=== PATIENT | male | born 1990 | race African-American/Black ===

== ENCOUNTER 2018-03-01 22:37 | Emergency (ER) | payer MEDICAID ==
[~2018-03-01] VITALS: Ht 170.2 cm; Wt 104.3 kg
[~2018-03-01 22:37] MED LIST: METFORMIN HCL1000 M2 ORAL
[2018-03-01 22:45] VITALS: BP 134/75
[2018-03-01] MEDS ORDERED: Insulin Human Regular 100units/ml 3ml IV ONE (23:00)
[2018-03-01 23:08] LABS: APPEARANCE,URINE CLEAR; BASOPHILS % (AUTO) 3.5 % (0.0-2.0); BILIRUBIN, URINE NEGATIVE (NEGATIVE); COLOR,URINE PALE YELLOW; GLUCOSE, URINE (UA) 4+ (NEGATIVE); HEMATOCRIT 47.5 % (42.0-52.0); HEMOGLOBIN 15.9 G/DL (14.2-18.0); KETONES,URINE 4+ (NEGATIVE); LEUKOCYTE ESTERASE ,URINE NEGATIVE (NEGATIVE); LYMPHOCYTES % (AUTO) 23.6 % (20.0-45.0); MEAN CORPUSCULAR VOLUME 85 FL (80-99); NEUTROPHILS % (AUTO) 65.9 % (45.0-75.0); NITRITE,URINE NEGATIVE (NEGATIVE); PH,URINE 5 (4.5-8.0); PLATELET COUNT 315 K/UL (150-450); PROTEIN,URINE 3+ (NEGATIVE); RED BLOOD COUNT 5.57 M/UL (4.70-6.10); RED CELL DISTRIBUTION WIDTH 11.8 % (11.6-14.8); UROBILINOGEN,URINE NORMAL MG/DL (0.0-1.0); WHITE BLOOD COUNT 9.4 K/UL (4.8-10.8)
[2018-03-01 23:27] LABS: ANION GAP 21 mmol/L (5-15); BLOOD UREA NITROGEN 18 mg/dL (7-18); CALCIUM 9.7 MG/DL (8.5-10.1); CARBON DIOXIDE 16 MMOL/L (21-32); CHLORIDE 93 MMOL/L (98-107); CREATININE 1.4 MG/DL (0.55-1.30); POTASSIUM 4.5 MMOL/L (3.5-5.1); SODIUM 130 MMOL/L (136-145)
--- NOTE | 2018-03-01 23:59 | Emergency Room Report ---
History of Present Illness General Chief Complaint: General Complaint Source: Patient, EMS Present Illness HPI Is a 27-year-old male who was recently diagnosed with diabetes couple weeks ago. He was put on metformin. He has been taking it like he supposed to. He presents with chief complaint of feeling weak and tired. Same symptom he had when he was admitted for a day for hyperglycemia new-onset diabetes. Denies any nausea vomiting. Denies any diarrhea. No fever chills but no cough or congestion. Chest generalized body pain and weakness. Allergies: Coded Allergies: No Known Allergies (Unverified , 03/01/18) Patient History Past Medical History: see triage record, old chart reviewed, DM Past Surgical History: none Pertinent Family History: DM Social History: Denies: smoking Immunizations: other Reviewed Nursing Documentation: PMH: Agreed; PSxH: Agreed Nursing Documentation-PMH Past Medical History: No History, Except For Hx Diabetes: Yes Physical Exam Vital Signs Date Time Temp Pulse Resp B/P (MAP) Pulse Ox O2 Delivery O2 Flow Rate FiO2 03/01/18 22:30 97.7 127 16 164/112 100 Room Air 97.7 Medical Decision Making Diagnostic Impression: Primary Impression: Hyperglycemia due to type 2 diabetes mellitus Qualified Codes: E11.65 - Type 2 diabetes mellitus with hyperglycemia Additional Impressions: MARGA (acute kidney injury) Proteinuria Qualified Codes: R80.9 - Proteinuria, unspecified ER Course Patient presents with hyperglycemia secondary to noncompliance with his medication. No evidence of DKA. No evidence of infection. He felt better after 2 L of IV fluid and insulin. We'll discharge home. Lab Results Impression labs with elevated glucose Last Vital Signs Date Time Temp Pulse Resp B/P (MAP) Pulse Ox O2 Delivery O2 Flow Rate FiO2 03/01/18 22:30 97.7 127 16 164/112 100 Room Air 97.7 Status: improved Disposition: HOME, SELF-CARE Condition: Stable Referrals: NOT CHOSEN IPA/,REFERRING (PCP) Additional Instructions: Take your medicine. Follow-up your doctor within a week. Return if worse. Óscar Scruggs MD Mar 01, 2018 23:59
[2018-03-02 00:55] VITALS: BP 134/75
== END 2018-03-02 00:55 | disposition home or self-care (01) ==
LOC: EDBD 22:37 → EMR 23:15
DX: E11.65 Type 2 diabetes mellitus with hyperglycemia (principal); R80.9 Proteinuria, unspecified; R53.1 Weakness; Z91.14 Patient's other noncompliance with medication regimen; Z79.84 Long term (current) use of oral hypoglycemic drugs
CPT/HCPCS: 36415; 80048; 80307; 81001; 82962; 85025; 96361; 96374; 99284; J1815